=== PATIENT | male | born 1960 | race Caucasian/White ===

== ENCOUNTER 2020-02-18 15:00 | Outpatient (RCR) | payer MEDICAID, OTHER, SELFPAY | END 2020-03-29 11:54 | disposition other institution (70) | LOC: HO.PT 15:00 | PROVIDERS: PCP Internal Medicine; Visit Provider Internal Medicine | DX: Z89.611 Acquired absence of right leg above knee (principal) | CPT/HCPCS: 97110; 97116; 97161; 97530 ==

== ENCOUNTER → 2020-03-29 14:24 | Outpatient (BNVA) | payer MEDICAID, SELFPAY | PROVIDERS: PCP Internal Medicine; Visit Provider Internal Medicine Gastroenterology | DX: K59.04 Chronic idiopathic constipation (principal); Z86.010 Personal history of colon polyps | CPT/HCPCS: 99212 ==